=== PATIENT | male | born 1970 | race Hispanic/Latino ===

== ENCOUNTER 2022-03-12 16:02 | Emergency (ER) | payer SELFPAY ==
[2022-03-12] VITALS (9 sets, daily range): BP systolic 141–172; BP diastolic 78–103
[~2022-03-12] VITALS: Ht 175.3 cm; Wt 91.0 kg
[2022-03-12 17:48] LABS: HEMATOCRIT 35.9 % (39.0-50.0); MEAN CORPUSCULAR HGB 26.5 pG CALC (26.0-32.0); MEAN CORPUSCULAR HGB CONC 33.4 g/dL CAL (32.0-36.0); NEUT# 4.45 thou/uL (1.82-7.42); RED BLOOD COUNT 4.53 mill/uL (4.70-6.10); RED CELL DISTRI WIDTH 16.7 % (11.5-15.5)
[2022-03-12 17:50] LABS: MEAN CELL VOLUME 79.2 fL CALC (80.0-100.0)
[2022-03-12 17:56] LABS: ALBUMIN 5.1 g/dL (3.2-5.0); ALKALINE PHOSPHATASE 66 u/l (38-126); ANION GAP 17 (6-22 (CALC)); BILIRUBIN, TOTAL 0.5 mg/dL (0.0-1.4); BUN 10 mg/dL (9-20); BUN/CREATININE RATIO 15 (12-20 (CALC)); CARBON DIOXIDE 26 mmol/l (22-30); CHLORIDE 100 mmol/l (95-108); CREATININE 0.7 mg/dL (0.7-1.3); GFR FOR AFR.AMER. > 60 ML/MIN (>=60 (CALC)); GFR OTHER RACES > 60 ML/MIN (>=60 (CALC)); POTASSIUM 3.4 mmol/l (3.5-5.1); SGOT/AST 76 u/l (17-59); SODIUM 140 mmol/l (137-146); TOTAL PROTEIN 7.8 g/dL (6.3-8.2)
[2022-03-12] MEDS ORDERED: NAPROXEN500 MG PO (18:49)
[2022-03-12] MEDS ORDERED: METHOCARBAMOL500 MG PO (18:49)
== END 2022-03-12 19:11 | disposition home or self-care (01) | DRG 552 ==
LOC: ED 16:02
PROVIDERS: Nurse Practitioner
DX: S16.1XXA Strain of muscle, fascia and tendon at neck level, initial encounter (principal); R51.9 Headache, unspecified; M54.2 Cervicalgia; X58.XXXA Exposure to other specified factors, initial encounter